=== PATIENT | female | born 1960 | race African-American/Black ===

== ENCOUNTER 2018-11-16 11:33 | Emergency (ER) | payer MEDICAID ==
[2018-11-16 11:53] VITALS: BP 143/75
--- NOTE | 2018-11-16 13:00 | ER Document Report ---
ED Medical Screen (RME) - General Chief Complaint: Arm Problem Stated Complaint: POSSIBLE SPIDER BITE Time Seen by Provider: 11/16/18 12:35 Mode of Arrival: Ambulatory Information source: Patient Notes: Patient is a 58-year-old female presented to the emergency department chief complaint of stuttering speech, twitching and shaking movements. Patient reports yesterday she was bitten by a spider on her right bicep area. She states she immediately called poison control who recommended putting alcohol to the area and elevating her arm above her head. Patient reports she did all of this however this morning around 1030 she started having the twitching and shaking movements. Exam: No obvious insect bite noted to right bicep area there is a very faint area of redness that is barely noticeable but patient keeps rubbing at. I have greeted and performed a rapid initial assessment of this patient. A comprehensive ED assessment and evaluation of the patient, analysis of test results and completion of the medical decision making process will be conducted by additional ED providers. Dictation of this chart was performed using voice recognition software; therefore, there may be some unintended grammatical errors. TRAVEL OUTSIDE OF THE [place] IN LAST 30 DAYS: No - Related Data Allergies/Adverse Reactions: No Known Allergies Allergy (Unverified 11/16/18 11:36) Past Medical History Pulmonary Medical History: Reports: Hx Asthma Renal/ Medical History: Denies: Hx Peritoneal Dialysis Past Surgical History: Reports: Hx Orthopedic Surgery - back Physical Exam - Vital signs Vitals: Temp Pulse Resp BP Pulse Ox 98 F 93 18 143/75 H 97 11/16/18 11:51 11/16/18 11:51 11/16/18 11:51 11/16/18 11:51 11/16/18 11:51 Course - Vital Signs Vital signs: Temp Pulse Resp BP Pulse Ox 98 F 93 18 143/75 H 97 11/16/18 11:51 11/16/18 11:51 11/16/18 11:51 11/16/18 11:51 11/16/18 11:51 - Laboratory Result Diagrams: 11/16/18 12:43 11/16/18 12:43
[2018-11-16 13:05] LABS: ABSOLUTE LYMPHOCYTES (AUTO) 2.4 10^3/uL (0.5-4.7); ABSOLUTE MONOCYTES (AUTO) 0.4 10^3/uL (0.1-1.4); ABSOLUTE NEUT (AUTO) 6.2 10^3/uL (1.7-8.2); BASOPHILS % (AUTO) 0.5 % (0-2); EOSINOPHILS % (AUTO) 0.3 % (0-6); HEMATOCRIT 43.9 % (36.0-47.0); HEMOGLOBIN 15.2 g/dL (12.0-15.5); INTERNATIONAL RATION (INR) 0.86; LYMPHOCYTES % (AUTO) 26.7 % (13-45); MEAN CORPUSCULAR HEMOGLOBIN 32.1 pg (27.0-33.4); MEAN CORPUSCULAR HGB CONC 34.7 g/dL (32.0-36.0); MEAN CORPUSCULAR VOLUME 93 fl (80-97); MONOCYTES % (AUTO) 4.3 % (3-13); PARTIAL THROMBOPLASTIN TIME 28.8 SEC (23.5-35.8); PLATELET COUNT 279 10^3/uL (150-450); PROTHROMBIN TIME 12.2 SEC (11.4-15.4); RED BLOOD COUNT 4.75 10^6/uL (3.72-5.28); RED CELL DISTRIBUTION WIDTH 13.7 % (11.5-14.0); SEGMENTED NEUTROPHILS % (AUTO) 68.2 % (42-78); TOTAL CELLS COUNTED % (AUTO) 100 %; WHITE BLOOD COUNT 9.2 10^3/uL (4.0-10.5)
[2018-11-16 13:16] LABS: ALANINE AMINOTRANSFERASE 23 U/L (9-52); ALBUMIN 4.7 g/dL (3.5-5.0); ALKALINE PHOSPHATASE 84 U/L (38-126); ANION GAP 9 (5-19); ASPARTATE AMINO TRANSFERASE 19 U/L (14-36); BILIRUBIN,DIRECT 0.3 mg/dL (0.0-0.4); BILIRUBIN,TOTAL 0.5 mg/dL (0.2-1.3); BLOOD UREA NITROGEN 11 mg/dL (7-20); CALCIUM 10.2 mg/dL (8.4-10.2); CARBON DIOXIDE 26 mmol/L (22-30); CHLORIDE 108 mmol/L (98-107); GLUCOSE 102 mg/dL (75-110); POTASSIUM 4.1 mmol/L (3.6-5.0); SODIUM 142.5 mmol/L (137-145); TOTAL PROTEIN 6.9 g/dL (6.3-8.2)
== END 2018-11-16 14:31 | disposition left against medical advice (07) ==
LOC: EDBD 11:33 → ER 11:33
DX: Z53.21 Procedure and treatment not carried out due to patient leaving prior to being seen by health care provider (principal); R25.1 Tremor, unspecified; F80.81 Childhood onset fluency disorder; J45.909 Unspecified asthma, uncomplicated
CPT/HCPCS: 36415; 80053; 85025; 85610; 85730; 99281